=== PATIENT | male | born 1970 | race Caucasian/White ===

== ENCOUNTER 2018-02-28 15:13 | Inpatient (IN) | payer BC ==
[~2018-02-28] VITALS: Ht 182.9 cm; Wt 115.2 kg
[2018-02-28 16:33] LABS: BASOPHILS % (AUTO) 0.3 % (0-1); EOSINOPHILS # (AUTO) 0.1 X10'3 (0-0.9); EOSINOPHILS % (AUTO) 1.1 % (0-6); HEMATOCRIT 40.2 % (42.0-52.0); HEMOGLOBIN 13.9 g/dl (14.0-17.9); LYMPHOCYTES # (AUTO) 0.9 X10'3 (1.1-4.8); LYMPHOCYTES % (AUTO) 7.4 % (21-51); MEAN CORPUSCULAR HEMOGLOBIN 30.8 PG (27.0-31.0); MEAN CORPUSCULAR HGB CONC 34.6 % (33.0-36.5); MEAN PLATELET VOLUME 7.1 FL (7.4-10.4); MONOCYTES # (AUTO) 0.7 X10'3 (0-0.9); MONOCYTES % (AUTO) 5.2 % (2-12); NEUTROPHILS # (AUTO) 10.9 X10'3 (1.8-7.7); PLATELET COUNT 262 X10'3 (140-440); RED BLOOD COUNT 4.51 X10'6 (4.70-6.10); RED CELL DISTRIBUTION WIDTH 12.6 % (11.5-14.5); WHITE BLOOD COUNT 12.7 X10'3 (4.5-11.0)
[2018-02-28 16:35] LABS: CLARITY,URINE Clear (Clear); GLUCOSE, URINE Negative (Neg); KETONES,URINE Negative (Neg); LEUKOCYTE ESTERASE ,URINE Negative (Neg); NITRITES, URINE Negative (Neg); OCCULT BLOOD,URINE Negative (Neg); PROTEIN,URINE Negative (Neg); UROBILINOGEN,URINE 0.2 E.U/dL (0.2-1.0)
[2018-02-28 16:42] LABS: COLOR,URINE STRAW (Yellow); UA COLLECTION TYPE CLN CATCH MIDSTREAM
[2018-02-28 16:48] LABS: ALANINE AMINOTRANSFERASE 38 U/L (12-78); ALBUMIN/GLOBULIN RATIO 1.2 (1.1-1.5); ALKALINE PHOSPHATASE 73 IU/L (46-116); ANION GAP 10 (8-16); ASPARTATE AMINO TRANSFERASE 18 U/L (10-37); BILIRUBIN,TOTAL 0.7 MG/DL (0.1-1.0); BLOOD UREA NITROGEN 14 MG/DL (7-18); BUN/CREATININE RATIO 12.8 (5.4-32.0); CALCIUM 9.6 MG/DL (8.5-10.1); CHLORIDE 101 MMOL/L (99-107); CREATININE 1.09 MG/DL (0.60-1.10); GLUCOSE 114 MG/DL (70-104); POTASSIUM 4.1 MMOL/L (3.5-5.1); SODIUM 139 MMOL/L (135-145); TOTAL CARBON DIOXIDE 28.1 MMOL/L (24-32); TOTAL PROTEIN 7.3 G/DL (6.4-8.2); eGFR 73 ML/MIN
[2018-02-28] MEDS ORDERED: piperacillin/tazo 3.375gm/50ml 50 ML IV ONE (16:55)
[2018-02-28] MEDS ORDERED: oxyCODONE/APAP 10/325mg tablet PO ONE (17:20)
[2018-02-28] MEDS ORDERED: potassium Cl 20 mEq SR tablet PO PRN ×2 (18:30)
[2018-02-28] MEDS ORDERED: magnesium 4gm in 100ml NS 100 ML IV PRN (18:30)
[2018-02-28] MEDS ORDERED: magnesium 2GM in 50ml NS 50 ML IV PRN (18:30)
[2018-02-28] MEDS ORDERED: diphenhydrAMINE 25mg capsule PO PRN (18:30)
[2018-02-28] MEDS ORDERED: mag hydrox/Alum hydrox/simeth 30ml oral suspension PO PRN (18:30)
[2018-02-28] MEDS ORDERED: oxyCODONE/APAP 10/325mg tablet PO PRN (18:30)
[2018-02-28] MEDS ORDERED: magnesium Cl slow-release 64mg tablet PO PRN (18:30)
[2018-02-28] MEDS ORDERED: ondansetron/PF 4mg/2ml inj IV PRN (18:30)
[2018-02-28] MEDS ORDERED: magnesium hydroxide 30ml (MOM) UD suspension PO PRN (18:30)
[2018-02-28] MEDS ORDERED: diphenhydrAMINE 50 mg/ml inj IV PRN (18:30)
[2018-02-28] MEDS ORDERED: acetaminophen 325mg tablet PO PRN ×2 (18:30)
[2018-02-28] MEDS ORDERED: potassium Cl 40MEQ/NS 500ml 500 ML IV PRN ×2 (18:30)
[2018-02-28] MEDS: normal saline 1000ml 1,000 ML IV SCH (18:42)
[2018-02-28] MEDS: ALPRAZolam 0.5mg tablet PO PRN (18:58)
[2018-02-28] MEDS: vancomycin inj 1,250 MG in normal saline 250ml IV soln 250 ML IV SCH (19:11)
[2018-02-28] MEDS: nortriptyline 25mg capsule PO SCH (20:05)
[2018-02-28] MEDS ORDERED: PER10325T PO (20:09)
[2018-02-28] MEDS ORDERED: GABA300C PO (20:09)
[2018-02-28] MEDS ORDERED: NORT25CA5 PO (20:09)
[2018-02-28] MEDS ORDERED: ALPR-624 PO (20:09)
[2018-02-28] MEDS: gabapentin 300mg capsule PO SCH (20:12)
[2018-02-28] MEDS ORDERED: temazepam 15mg capsule PO PRN (21:00)
[2018-02-28 21:30] VITALS: BP 147/80
[2018-02-28] MEDS ORDERED: IBUP-1984 PO (22:34)
[2018-03-01 00:09] VITALS: BP 130/81
[2018-03-01] MEDS: vancomycin inj 1,250 MG in normal saline 250ml IV soln 250 ML IV SCH ×3 (03:00→19:28)
[2018-03-01] MEDS ORDERED: vancomycin/NS 1 GM ADD-VANTAGE 250 ML IV ONE (04:15)
[2018-03-01 06:44] LABS: BASOPHILS # (AUTO) 0.1 X10'3 (0-0.2); BASOPHILS % (AUTO) 1.2 % (0-1); EOSINOPHILS # (AUTO) 0.2 X10'3 (0-0.9); EOSINOPHILS % (AUTO) 1.5 % (0-6); HEMATOCRIT 38.1 % (42.0-52.0); HEMOGLOBIN 13.3 g/dl (14.0-17.9); LYMPHOCYTES # (AUTO) 1.8 X10'3 (1.1-4.8); LYMPHOCYTES % (AUTO) 15.6 % (21-51); MEAN CORPUSCULAR HEMOGLOBIN 31.1 PG (27.0-31.0); MEAN CORPUSCULAR HGB CONC 34.8 % (33.0-36.5); MEAN CORPUSCULAR VOLUME 89.5 FL (78-98); MONOCYTES # (AUTO) 0.8 X10'3 (0-0.9); MONOCYTES % (AUTO) 7.2 % (2-12); NEUTROPHILS # (AUTO) 8.5 X10'3 (1.8-7.7); NEUTROPHILS % (AUTO) 74.5 % (42-75); PLATELET COUNT 243 X10'3 (140-440); RED BLOOD COUNT 4.26 X10'6 (4.70-6.10); RED CELL DISTRIBUTION WIDTH 12.7 % (11.5-14.5); WHITE BLOOD COUNT 11.4 X10'3 (4.5-11.0)
[2018-03-01 07:15] LABS: ALBUMIN 3.5 G/DL (3.4-5.0); ANION GAP 8 (8-16); BLOOD UREA NITROGEN 13 MG/DL (7-18); BUN/CREATININE RATIO 11.9 (5.4-32.0); CHLORIDE 103 MMOL/L (99-107); CREATININE 1.09 MG/DL (0.60-1.10); GLUCOSE 111 MG/DL (70-104); MAGNESIUM 2.1 MG/DL (1.5-2.4); POTASSIUM 3.8 MMOL/L (3.5-5.1); SODIUM 140 MMOL/L (135-145); TOTAL CARBON DIOXIDE 29.3 MMOL/L (24-32); eGFR 73 ML/MIN
[2018-03-01 07:19] VITALS: BP 139/89
[2018-03-01] MEDS: K and/or MAG REPLACEMENT MC SCH (07:36)
[2018-03-01] MEDS: gabapentin 300mg capsule PO SCH ×2 (07:37→19:28)
[2018-03-01] MEDS ORDERED: CefTRIAXone 250MG IM Kit w/LIDOcaine IM ONE (08:15)
[2018-03-01] MEDS ORDERED: azithromycin 250mg tablet PO ONE (08:15)
[2018-03-01] MEDS: normal saline 1000ml 1,000 ML IV SCH (11:31)
[2018-03-01 12:29] VITALS: BP 132/66
[2018-03-01 18:30] VITALS: BP 146/100
[2018-03-01] MEDS ORDERED: VANCOMYCIN LEVEL IV ONE (18:30)
[2018-03-01] MEDS: ALPRAZolam 0.5mg tablet PO PRN (19:03)
[2018-03-01] MEDS: lactobacillus rhamnosus 10,000 MMU CELLS/CAPSULE PO SCH (19:28)
[2018-03-01] MEDS: nortriptyline 25mg capsule PO SCH (20:35)
[2018-03-01 22:55] VITALS: BP 132/85
[2018-03-02] MEDS: vancomycin inj 1,250 MG in normal saline 250ml IV soln 250 ML IV SCH (03:01)
[2018-03-02 05:35] LABS: BASOPHILS % (AUTO) 0.2 % (0-1); EOSINOPHILS # (AUTO) 0.4 X10'3 (0-0.9); EOSINOPHILS % (AUTO) 3.8 % (0-6); HEMATOCRIT 39.5 % (42.0-52.0); HEMOGLOBIN 13.8 g/dl (14.0-17.9); LYMPHOCYTES # (AUTO) 1.6 X10'3 (1.1-4.8); MEAN CORPUSCULAR HEMOGLOBIN 31.2 PG (27.0-31.0); MEAN CORPUSCULAR HGB CONC 34.9 % (33.0-36.5); MEAN CORPUSCULAR VOLUME 89.3 FL (78-98); MEAN PLATELET VOLUME 7.1 FL (7.4-10.4); MONOCYTES # (AUTO) 0.9 X10'3 (0-0.9); MONOCYTES % (AUTO) 8.3 % (2-12); NEUTROPHILS # (AUTO) 7.4 X10'3 (1.8-7.7); NEUTROPHILS % (AUTO) 71.7 % (42-75); PLATELET COUNT 248 X10'3 (140-440); RED BLOOD COUNT 4.43 X10'6 (4.70-6.10); RED CELL DISTRIBUTION WIDTH 12.7 % (11.5-14.5); WHITE BLOOD COUNT 10.3 X10'3 (4.5-11.0)
[2018-03-02 05:59] LABS: ALBUMIN 3.4 G/DL (3.4-5.0); ANION GAP 7 (8-16); BLOOD UREA NITROGEN 14 MG/DL (7-18); BUN/CREATININE RATIO 13.9 (5.4-32.0); CALCIUM 9.5 MG/DL (8.5-10.1); CHLORIDE 104 MMOL/L (99-107); CREATININE 1.01 MG/DL (0.60-1.10); GLUCOSE 112 MG/DL (70-104); MAGNESIUM 2.1 MG/DL (1.5-2.4); POTASSIUM 3.9 MMOL/L (3.5-5.1); SODIUM 141 MMOL/L (135-145); TOTAL CARBON DIOXIDE 29.6 MMOL/L (24-32); eGFR 80 ML/MIN
[2018-03-02 07:06] VITALS: BP 126/92
[2018-03-02] MEDS: K and/or MAG REPLACEMENT MC SCH (08:00)
[2018-03-02] MEDS: lactobacillus rhamnosus 10,000 MMU CELLS/CAPSULE PO SCH (08:14)
[2018-03-02] MEDS: gabapentin 300mg capsule PO SCH (08:14)
[2018-03-02] MEDS ORDERED: SULF1TAB49 PO (08:56)
[2018-03-02] MEDS ORDERED: VANCOMYCIN LEVEL IV ONE (10:30)
== END 2018-03-02 09:20 | disposition home or self-care (01) | DRG 603 ==
LOC: ER 15:13 → ED HOLD 18:26 → EDBEDREQ 20:24 → MED 3N 20:59
PROVIDERS: ADMIT Internal Medicine; ATTEND Internal Medicine
DX: L03.314 Cellulitis of groin (principal); G62.9 Polyneuropathy, unspecified; F41.9 Anxiety disorder, unspecified; N45.1 Epididymitis; L02.215 Cutaneous abscess of perineum; G89.4 Chronic pain syndrome; N50.89 Other specified disorders of the male genital organs; M54.9 Dorsalgia, unspecified; Z79.899 Other long term (current) drug therapy; Z79.01 Long term (current) use of anticoagulants; Z79.82 Long term (current) use of aspirin
CPT/HCPCS: 36415; 76870; 80048; 80053; 80202; 81003; 83605; 83735; 85025; 87040; 87070; 87491; 96365; 99285; J0696; J2543; J3370; J7030

== ENCOUNTER 2019-11-28 10:04 | Inpatient (IN) | payer BC ==
[~2019-11-28] VITALS: Ht 182.9 cm; Wt 120.5 kg
[~2019-11-28 10:04] MED LIST: ALPR-624 PO; GABA300C PO; NORT25CA5 PO; PER10325T PO
[2019-11-28] MEDS ORDERED: normal saline 1000ML IV soln IV ONE (10:35)
[2019-11-28] MEDS ORDERED: LIDOcaine 1% W/epiNEPHrine 1:200,000 10ml vial IJ ONE (10:40)
[2019-11-28] MEDS ORDERED: vancomycin inj 1,000 MG in normal saline 250ml IV soln 250 ML IV ONE (10:50)
[2019-11-28] MEDS ORDERED: VANCOMYCIN 1gm/H2O 200ml PB 200 ML IV ONE (11:05)
[2019-11-28 11:07] LABS: BASOPHILS # (AUTO) 0.1 X10'3 (0-0.2); BASOPHILS % (AUTO) 0.7 % (0-1); EOSINOPHILS # (AUTO) 0.2 X10'3 (0-0.9); EOSINOPHILS % (AUTO) 1.4 % (0-6); HEMATOCRIT 38.9 % (42.0-52.0); HEMOGLOBIN 13.5 g/dl (14.0-17.9); LYMPHOCYTES # (AUTO) 1.4 X10'3 (1.1-4.8); LYMPHOCYTES % (AUTO) 12.3 % (21-51); MEAN CORPUSCULAR HEMOGLOBIN 31.1 PG (27.0-31.0); MEAN CORPUSCULAR HGB CONC 34.7 g/dL (33.0-36.5); MEAN CORPUSCULAR VOLUME 89.8 FL (78-98); MONOCYTES # (AUTO) 0.8 X10'3 (0-0.9); MONOCYTES % (AUTO) 7.3 % (2-12); NEUTROPHILS # (AUTO) 8.9 X10'3 (1.8-7.7); NEUTROPHILS % (AUTO) 78.3 % (42-75); PLATELET COUNT 339 X10'3 (140-440); RED BLOOD COUNT 4.33 X10'6 (4.70-6.10); RED CELL DISTRIBUTION WIDTH 12.9 % (11.5-14.5); WHITE BLOOD COUNT 11.3 X10'3 (4.5-11.0)
[2019-11-28 11:32] LABS: ALANINE AMINOTRANSFERASE 58 U/L (12-78); ALBUMIN 3.8 G/DL (3.4-5.0); ALBUMIN/GLOBULIN RATIO 0.9 (1.1-1.5); ALKALINE PHOSPHATASE 97 IU/L (46-116); ANION GAP 9 (8-16); ASPARTATE AMINO TRANSFERASE 29 U/L (10-37); BILIRUBIN,TOTAL 0.8 MG/DL (0.1-1.0); BLOOD UREA NITROGEN 11 MG/DL (7-18); BUN/CREATININE RATIO 9.4 (5.4-32.0); CALCIUM 9.6 MG/DL (8.5-10.1); CHLORIDE 102 MMOL/L (99-107); CREATININE 1.17 MG/DL (0.60-1.10); GLUCOSE 110 MG/DL (70-104); MAGNESIUM 2.2 MG/DL (1.5-2.4); POTASSIUM 4.2 MMOL/L (3.5-5.1); SODIUM 140 MMOL/L (135-145); TOTAL CARBON DIOXIDE 29.5 MMOL/L (24-32); eGFR 67 ML/MIN
[2019-11-28] MEDS ORDERED: acetaminophen 325mg tablet PO PRN (12:50)
[2019-11-28] MEDS ORDERED: morphine 2 MG/ML inj. syringe IV PRN (12:50)
[2019-11-28] MEDS ORDERED: magnesium hydroxide 30ml (MOM) UD suspension PO PRN (12:50)
[2019-11-28] MEDS ORDERED: mag hydrox/Alum hydrox/simeth 30ml oral suspension PO PRN (12:50)
[2019-11-28] MEDS: HYDROcodone/acetaminophen 5mg/325mg tablet PO PRN ×2 (13:18→19:40)
[2019-11-28 13:53] VITALS: BP 196/120
[2019-11-28] MEDS: normal saline 1000ml 1,000 ML IV SCH ×2 (14:19→22:49)
--- NOTE | 2019-11-28 16:10 | NUR ---
PAGER ID: [phone] MESSAGE: [id number] Marques Schuler: Patient is complaining of 10/10 finger pain. Patient was given morphine 1 mg an hour and a half ago. Patient is wanting something stronger. JENNA Bhagat Ext [phone]
[2019-11-28 16:14] VITALS: BP 172/88
--- NOTE | 2019-11-28 16:16 | NUR ---
PAGER ID: [phone] MESSAGE: FYI: RM [id number] Marques Schuler BP 172/88 JENNA Bhagat ext [phone]
[2019-11-28] MEDS: HYDROmorphone inj. 0.5 MG/0.5 ML DISP.SYRIN IV PRN ×2 (16:20→20:58)
--- NOTE | 2019-11-28 16:28 | NUR ---
PAGER ID: [phone] MESSAGE: [id number] Marques Schuler: was hoping he could get his 300mg daily Gabapentin and his prn Xanax 0.5mg. He usually take his Gabapentin at 1600. JENNA Bhagat Ext [phone]
[2019-11-28 18:00] VITALS: BP 169/84
--- NOTE | 2019-11-28 18:15 | NUR ---
Problems reprioritized. Patient report given, questions answered & plan of care reviewed with JENNA Brody.
[2019-11-28] MEDS ORDERED: ALPRAZolam 0.25mg tablet PO SCH (21:26)
[2019-11-28] MEDS: gabapentin 300mg capsule PO SCH (21:36)
[2019-11-28] MEDS: heparin, porcine 5000 units/ml vial SQ SCH (21:38)
[2019-11-28 22:00] VITALS: BP 155/90
[2019-11-29] MEDS: HYDROmorphone inj. 0.5 MG/0.5 ML DISP.SYRIN IV PRN ×3 (00:58→09:35)
[2019-11-29] MEDS: normal saline 1000ml 1,000 ML IV SCH ×2 (01:05→11:33)
[2019-11-29] MEDS: HYDROcodone/acetaminophen 5mg/325mg tablet PO PRN (04:25)
[2019-11-29 06:00] VITALS: BP 152/92
[2019-11-29 06:19] LABS: BASOPHILS % (AUTO) 0.4 % (0-1); EOSINOPHILS # (AUTO) 0.1 X10'3 (0-0.9); EOSINOPHILS % (AUTO) 1.2 % (0-6); HEMATOCRIT 33.9 % (42.0-52.0); HEMOGLOBIN 12.1 g/dl (14.0-17.9); LYMPHOCYTES # (AUTO) 1.9 X10'3 (1.1-4.8); LYMPHOCYTES % (AUTO) 17.1 % (21-51); MEAN CORPUSCULAR HEMOGLOBIN 31.7 PG (27.0-31.0); MEAN CORPUSCULAR HGB CONC 35.7 g/dL (33.0-36.5); MEAN CORPUSCULAR VOLUME 88.8 FL (78-98); MEAN PLATELET VOLUME 6.8 FL (7.4-10.4); MONOCYTES % (AUTO) 8.7 % (2-12); NEUTROPHILS # (AUTO) 8.2 X10'3 (1.8-7.7); NEUTROPHILS % (AUTO) 72.6 % (42-75); PLATELET COUNT 339 X10'3 (140-440); RED BLOOD COUNT 3.82 X10'6 (4.70-6.10); RED CELL DISTRIBUTION WIDTH 12.5 % (11.5-14.5); WHITE BLOOD COUNT 11.2 X10'3 (4.5-11.0)
[2019-11-29 06:22] LABS: ALBUMIN 3.3 G/DL (3.4-5.0); ANION GAP 8 (8-16); BLOOD UREA NITROGEN 10 MG/DL (7-18); BUN/CREATININE RATIO 8.9 (5.4-32.0); CHLORIDE 102 MMOL/L (99-107); CREATININE 1.12 MG/DL (0.60-1.10); GLUCOSE 112 MG/DL (70-104); SODIUM 137 MMOL/L (135-145); TOTAL CARBON DIOXIDE 26.9 MMOL/L (24-32); eGFR 70 ML/MIN
--- NOTE | 2019-11-29 06:30 | NUR ---
Patient in room ORTH[facility] 4015. I have received report from JENNA Shea and had the opportunity to ask questions and assume patient care.
[2019-11-29] MEDS: gabapentin 300mg capsule PO SCH ×2 (09:01→19:34)
[2019-11-29] MEDS: heparin, porcine 5000 units/ml vial SQ SCH ×2 (09:02→19:34)
[2019-11-29] MEDS ORDERED: HYDROcodone/acetaminophen 10/325mg tab PO PRN (09:20)
[2019-11-29 10:00] VITALS: BP 185/107
[2019-11-29] MEDS ORDERED: DULO60CA65 PO (10:00)
[2019-11-29] MEDS: piperacillin/tazo 4.5gm/100ml 100 ML IV SCH ×3 (11:33→23:38)
[2019-11-29] MEDS: hydrALAZINE 20mg/ml inj. IV PRN ×2 (12:32→19:34)
[2019-11-29] MEDS: oxyCODONE/APAP 10/325mg tablet PO PRN ×3 (14:12→23:40)
[2019-11-29] MEDS: duloxetine 30mg CAPSULE.DR PO SCH ×2 (14:17→19:34)
[2019-11-29] MEDS: nortriptyline 25mg capsule PO SCH (14:22)
--- NOTE | 2019-11-29 18:00 | NUR ---
Patient in room [facility]TH[facility] 4015. I have received report from Manolo Burk RN and had the opportunity to ask questions and assume patient care. Addendum: 11/29/19 at 2131 by Shiela Lara RN Amended: Links added.
--- NOTE | 2019-11-29 18:00 | NUR ---
Patient in room [facility]TH[facility] 4015. I have received report from Manolo Burk RN and had the opportunity to ask questions and assume patient care. Addendum: 11/30/19 at 0414 by Shiela Lara RN Amended: Links added.
--- NOTE | 2019-11-29 18:51 | NUR ---
Problems reprioritized. Patient report given, questions answered & plan of care reviewed with JENNA Kuo.
[2019-11-29] MEDS ORDERED: VANCOMYCIN LEVEL IV ONE (19:30)
[2019-11-29] MEDS: ALPRAZolam 0.25mg tablet PO SCH (21:27)
[2019-11-29] MEDS ORDERED: amLODIPine 5mg tablet PO ONE (22:10)
[2019-11-30] MEDS: ondansetron/PF 4mg/2ml inj IV PRN (00:03)
--- NOTE | 2019-11-30 00:30 | NUR ---
pt's nausea subsided and pt took second Percocet at this time. pt resting in bed. no s/s of distress noted. Addendum: 11/30/19 at 0518 by Shiela Lara RN Amended: Links added.
[2019-11-30 01:55] VITALS: BP 157/93
[2019-11-30] MEDS: normal saline 1000ml 1,000 ML IV SCH ×3 (04:28→23:44)
[2019-11-30 06:00] VITALS: BP 141/88
[2019-11-30 06:04] LABS: BASOPHILS % (AUTO) 0.4 % (0-1); EOSINOPHILS # (AUTO) 0.1 X10'3 (0-0.9); EOSINOPHILS % (AUTO) 0.7 % (0-6); HEMATOCRIT 35.9 % (42.0-52.0); HEMOGLOBIN 12.8 g/dl (14.0-17.9); LYMPHOCYTES # (AUTO) 1.2 X10'3 (1.1-4.8); LYMPHOCYTES % (AUTO) 10.6 % (21-51); MEAN CORPUSCULAR HEMOGLOBIN 31.9 PG (27.0-31.0); MEAN CORPUSCULAR HGB CONC 35.7 g/dL (33.0-36.5); MEAN CORPUSCULAR VOLUME 89.2 FL (78-98); MEAN PLATELET VOLUME 6.7 FL (7.4-10.4); MONOCYTES # (AUTO) 0.8 X10'3 (0-0.9); MONOCYTES % (AUTO) 7.3 % (2-12); NEUTROPHILS # (AUTO) 9.4 X10'3 (1.8-7.7); PLATELET COUNT 392 X10'3 (140-440); RED BLOOD COUNT 4.03 X10'6 (4.70-6.10); RED CELL DISTRIBUTION WIDTH 12.4 % (11.5-14.5); WHITE BLOOD COUNT 11.6 X10'3 (4.5-11.0)
[2019-11-30 06:08] LABS: ALBUMIN 3.4 G/DL (3.4-5.0); ANION GAP 9 (8-16); BLOOD UREA NITROGEN 14 MG/DL (7-18); BUN/CREATININE RATIO 12.5 (5.4-32.0); CALCIUM 9.7 MG/DL (8.5-10.1); CHLORIDE 103 MMOL/L (99-107); CREATININE 1.12 MG/DL (0.60-1.10); GLUCOSE 121 MG/DL (70-104); POTASSIUM 4.2 MMOL/L (3.5-5.1); SODIUM 141 MMOL/L (135-145); TOTAL CARBON DIOXIDE 29.4 MMOL/L (24-32); eGFR 70 ML/MIN
[2019-11-30] MEDS: piperacillin/tazo 4.5gm/100ml 100 ML IV SCH (08:43)
[2019-11-30] MEDS: gabapentin 300mg capsule PO SCH ×2 (08:44→20:17)
[2019-11-30] MEDS: duloxetine 30mg CAPSULE.DR PO SCH ×2 (08:44→20:17)
[2019-11-30] MEDS: nortriptyline 25mg capsule PO SCH (08:44)
[2019-11-30] MEDS: heparin, porcine 5000 units/ml vial SQ SCH ×2 (08:46→20:18)
[2019-11-30] MEDS: oxyCODONE/APAP 10/325mg tablet PO PRN ×4 (08:48→22:55)
[2019-11-30 10:00] VITALS: BP 140/99
[2019-11-30] MEDS: ceFAZolin/D5W- 1GM premix 50 ML IV SCH ×2 (16:13→23:42)
[2019-11-30] MEDS: ALPRAZolam 0.25mg tablet PO SCH (16:13)
[2019-11-30 18:00] VITALS: BP 143/88
[2019-11-30] MEDS: lactobacillus rhamnosus 10,000 MMU CELLS/CAPSULE PO SCH (20:17)
[2019-11-30 22:00] VITALS: BP 139/92
[2019-12-01] VITALS (16 sets, daily range): BP systolic 104–153; BP diastolic 67–101
[2019-12-01 05:39] LABS: ALBUMIN 3.2 G/DL (3.4-5.0); ANION GAP 8 (8-16); BLOOD UREA NITROGEN 14 MG/DL (7-18); BUN/CREATININE RATIO 12.4 (5.4-32.0); CALCIUM 9.4 MG/DL (8.5-10.1); CHLORIDE 102 MMOL/L (99-107); CREATININE 1.13 MG/DL (0.60-1.10); GLUCOSE 100 MG/DL (70-104); SODIUM 139 MMOL/L (135-145); TOTAL CARBON DIOXIDE 29.3 MMOL/L (24-32); eGFR 70 ML/MIN
[2019-12-01 05:41] LABS: BASOPHILS # (AUTO) 0.1 X10'3 (0-0.2); BASOPHILS % (AUTO) 0.8 % (0-1); EOSINOPHILS # (AUTO) 0.3 X10'3 (0-0.9); EOSINOPHILS % (AUTO) 3.4 % (0-6); HEMATOCRIT 36.3 % (42.0-52.0); HEMOGLOBIN 12.8 g/dl (14.0-17.9); LYMPHOCYTES % (AUTO) 22.3 % (21-51); MEAN CORPUSCULAR HEMOGLOBIN 31.9 PG (27.0-31.0); MEAN CORPUSCULAR HGB CONC 35.3 g/dL (33.0-36.5); MEAN CORPUSCULAR VOLUME 90.2 FL (78-98); MEAN PLATELET VOLUME 6.5 FL (7.4-10.4); MONOCYTES # (AUTO) 0.9 X10'3 (0-0.9); NEUTROPHILS # (AUTO) 5.7 X10'3 (1.8-7.7); NEUTROPHILS % (AUTO) 63.5 % (42-75); PLATELET COUNT 373 X10'3 (140-440); RED BLOOD COUNT 4.02 X10'6 (4.70-6.10); RED CELL DISTRIBUTION WIDTH 12.2 % (11.5-14.5); WHITE BLOOD COUNT 8.9 X10'3 (4.5-11.0)
[2019-12-01] MEDS: oxyCODONE/APAP 10/325mg tablet PO PRN ×3 (05:44→23:25)
--- NOTE | 2019-12-01 05:52 | NUR ---
SURGICAL PREP DONE THIS AM.
--- NOTE | 2019-12-01 06:22 | NUR ---
REPORT GIVEN TO JENNA HAYES.
--- NOTE | 2019-12-01 06:30 | NUR ---
Patient in room [facility]TH[facility] 4015. I have received report from Donna WEST and had the opportunity to ask questions and assume patient care.
[2019-12-01] MEDS: nortriptyline 25mg capsule PO SCH (07:35)
[2019-12-01] MEDS: duloxetine 30mg CAPSULE.DR PO SCH ×2 (07:35→19:21)
[2019-12-01] MEDS: ceFAZolin/D5W- 1GM premix 50 ML IV SCH ×3 (07:35→23:25)
[2019-12-01] MEDS: gabapentin 300mg capsule PO SCH ×2 (07:35→19:11)
[2019-12-01] MEDS: lactobacillus rhamnosus 10,000 MMU CELLS/CAPSULE PO SCH ×2 (07:35→19:11)
[2019-12-01] MEDS: heparin, porcine 5000 units/ml vial SQ SCH ×2 (08:00→19:11)
[2019-12-01] MEDS: normal saline 1000ml 1,000 ML IV SCH ×2 (10:32→15:41)
[2019-12-01] MEDS: hydrALAZINE 20mg/ml inj. IV PRN (11:12)
[2019-12-01] MEDS: ondansetron/PF 4mg/2ml inj IV PRN (12:09)
[2019-12-01] MEDS ORDERED: ringers solution, lacted 1,000 ML IV SCH (12:54)
[2019-12-01] MEDS ORDERED: proMETHazine 25mg rectal suppository RC PRN (12:55)
[2019-12-01] MEDS ORDERED: fentaNYL/PF 50MCG/1 ML 2ML syringe IV PRN ×2 (12:55)
[2019-12-01] MEDS ORDERED: labetalol 20mg/4ml (5mg/ml) syringe IV PRN (12:55)
[2019-12-01] MEDS ORDERED: ondansetron/PF 4mg/2ml inj IV PRN (12:55)
[2019-12-01] MEDS ORDERED: hydrALAZINE 20mg/ml inj. IV PRN (12:55)
[2019-12-01] MEDS ORDERED: morphine 4 MG/ML inj SYRINge IV PRN ×2 (12:55)
--- NOTE | 2019-12-01 12:56 | NUR ---
Patient report given to ritika in recovery
[2019-12-01] MEDS ORDERED: MIDAZolam 1mg/ml 10ml vial ONE (13:30)
[2019-12-01] MEDS ORDERED: fentaNYL/PF 50MCG/1 ML 2ML syringe ONE (13:30)
[2019-12-01] MEDS ORDERED: ROPIVAcaine 0.5% (5mg/ml) 30ml vial ONE (13:31)
[2019-12-01] MEDS ORDERED: propofol inj 20 ML IV ONE (13:41)
[2019-12-01] MEDS ORDERED: LIDOcaine 2% (20mg/ml) 5ml vial ONE (13:41)
[2019-12-01] MEDS ORDERED: ceFAZolin 1000mg inj ONE (13:46)
[2019-12-01] MEDS ORDERED: labetalol 20mg/4ml (5mg/ml) syringe IV ONE ×2 (13:55→14:04)
--- NOTE | 2019-12-01 14:16 | NUR ---
Received from OR via BED, accompanied by Anesthesiologist DR MARTÍNEZ and report given by Anesthesiologist. PT DROWSY, DENIES PAIN, LEFT HAND/WRIST COVERED W/GAUZE DRSG CDI, THUMB IS W/O DRSG AND IS PWD, LOG TURNER 1-2 SECONDS. Addendum: 12/01/19 at 1437 by Caty Edwards RN Amended: Links added.
--- NOTE | 2019-12-01 14:48 | NUR ---
Patient in room [facility]THO 4015. I have received report from Caty WEST and had the opportunity to ask questions and assume patient care.
--- NOTE | 2019-12-01 15:06 | NUR ---
Report called to receiving nurse. Transferred via BED, NO Belongings, PT TRANSFERRED BY [facility] TO ROOM 4015, RECEIVING RN NOTIFIED OF PTS ARRIVAL. Special Issues communicated to receiving nurse. YES. Addendum: 12/01/19 at 1518 by Caty Edwards RN Amended: Links added.
[2019-12-01] MEDS: ALPRAZolam 0.25mg tablet PO SCH (17:30)
--- NOTE | 2019-12-01 18:15 | NUR ---
Problems reprioritized. Patient report given, questions answered & plan of care reviewed with Martina WEST.
--- NOTE | 2019-12-01 18:27 | NUR ---
RECEIVED REPORT FROM FREDDY WEST AND ASSUMED PATIENT CARE
--- NOTE | 2019-12-01 19:20 | NUR ---
PATIENT STATES HE DOES NOT TAKE CYMBALTA A HOME MED. WILL CLARIFY WITH MD IN AM.
[2019-12-02 02:00] VITALS: BP 133/83
--- NOTE | 2019-12-02 05:59 | NUR ---
REPORT GIVEN TO FREDDY WEST
[2019-12-02 06:03] LABS: BASOPHILS # (AUTO) 0.1 X10'3 (0-0.2); BASOPHILS % (AUTO) 0.5 % (0-1); EOSINOPHILS # (AUTO) 0.2 X10'3 (0-0.9); EOSINOPHILS % (AUTO) 2.4 % (0-6); HEMOGLOBIN 13.6 g/dl (14.0-17.9); LYMPHOCYTES # (AUTO) 2.5 X10'3 (1.1-4.8); LYMPHOCYTES % (AUTO) 25.6 % (21-51); MEAN CORPUSCULAR HEMOGLOBIN 31.3 PG (27.0-31.0); MEAN CORPUSCULAR HGB CONC 34.8 g/dL (33.0-36.5); MEAN CORPUSCULAR VOLUME 89.7 FL (78-98); MEAN PLATELET VOLUME 6.6 FL (7.4-10.4); MONOCYTES # (AUTO) 0.8 X10'3 (0-0.9); NEUTROPHILS # (AUTO) 6.2 X10'3 (1.8-7.7); NEUTROPHILS % (AUTO) 63.5 % (42-75); PLATELET COUNT 448 X10'3 (140-440); RED BLOOD COUNT 4.35 X10'6 (4.70-6.10); RED CELL DISTRIBUTION WIDTH 12.7 % (11.5-14.5); WHITE BLOOD COUNT 9.8 X10'3 (4.5-11.0)
--- NOTE | 2019-12-02 06:07 | NUR ---
Patient in room ORTHO 4015. I have received report from Martina WEST and had the opportunity to ask questions and assume patient care.
[2019-12-02 06:10] VITALS: BP 148/98
[2019-12-02 06:15] LABS: ALBUMIN 3.5 G/DL (3.4-5.0); ANION GAP 10 (8-16); BLOOD UREA NITROGEN 12 MG/DL (7-18); BUN/CREATININE RATIO 11.3 (5.4-32.0); CHLORIDE 103 MMOL/L (99-107); CREATININE 1.06 MG/DL (0.60-1.10); GLUCOSE 105 MG/DL (70-104); SODIUM 141 MMOL/L (135-145); TOTAL CARBON DIOXIDE 28.2 MMOL/L (24-32); eGFR 75 ML/MIN
[2019-12-02] MEDS: nortriptyline 25mg capsule PO SCH (07:49)
[2019-12-02] MEDS: lactobacillus rhamnosus 10,000 MMU CELLS/CAPSULE PO SCH ×2 (07:54→19:48)
[2019-12-02] MEDS: duloxetine 30mg CAPSULE.DR PO SCH ×2 (07:54→19:48)
[2019-12-02] MEDS: ceFAZolin/D5W- 1GM premix 50 ML IV SCH ×3 (07:56→23:36)
[2019-12-02] MEDS: heparin, porcine 5000 units/ml vial SQ SCH ×2 (08:00→19:48)
[2019-12-02] MEDS: gabapentin 300mg capsule PO SCH ×2 (08:00→19:48)
[2019-12-02 10:00] VITALS: BP 138/93
--- NOTE | 2019-12-02 13:57 | NUR ---
Initial: Pt admit w/ L hand cellulitis s/p I&D to L finger. PO fluctuates but mostly 75-100% avg regular diet meeting needs. [facility] 11/30. Will continue to monitor. Rec: 1. continue regular diet 2. monitor for ONS needs 3. bowel care as needed 4. wt per rx Addendum: 12/02/19 at [address] Amended: Links added.
[2019-12-02] MEDS: ALPRAZolam 0.25mg tablet PO SCH (16:52)
[2019-12-02 18:00] VITALS: BP 138/86
--- NOTE | 2019-12-02 18:25 | NUR ---
Problems reprioritized. Patient report given, questions answered & plan of care reviewed with Janey WEST.
[2019-12-02 22:00] VITALS: BP 142/86
[2019-12-03 06:00] VITALS: BP 145/98
--- NOTE | 2019-12-03 06:13 | NUR ---
Problems reprioritized. Patient report given, questions answered & plan of care reviewed with JENNA Lindsay.
--- NOTE | 2019-12-03 06:44 | NUR ---
Patient in room ORTHO 4015. I have received report from Janey WEST and had the opportunity to ask questions and assume patient care.
[2019-12-03 07:24] LABS: BASOPHILS # (AUTO) 0.1 X10'3 (0-0.2); BASOPHILS % (AUTO) 1.1 % (0-1); EOSINOPHILS # (AUTO) 0.3 X10'3 (0-0.9); EOSINOPHILS % (AUTO) 3.3 % (0-6); HEMATOCRIT 38.9 % (42.0-52.0); HEMOGLOBIN 13.7 g/dl (14.0-17.9); LYMPHOCYTES # (AUTO) 1.9 X10'3 (1.1-4.8); LYMPHOCYTES % (AUTO) 20.7 % (21-51); MEAN CORPUSCULAR HEMOGLOBIN 31.6 PG (27.0-31.0); MEAN CORPUSCULAR HGB CONC 35.3 g/dL (33.0-36.5); MEAN CORPUSCULAR VOLUME 89.6 FL (78-98); MEAN PLATELET VOLUME 6.6 FL (7.4-10.4); MONOCYTES # (AUTO) 0.6 X10'3 (0-0.9); MONOCYTES % (AUTO) 6.1 % (2-12); NEUTROPHILS # (AUTO) 6.4 X10'3 (1.8-7.7); NEUTROPHILS % (AUTO) 68.8 % (42-75); PLATELET COUNT 481 X10'3 (140-440); RED BLOOD COUNT 4.34 X10'6 (4.70-6.10); RED CELL DISTRIBUTION WIDTH 12.5 % (11.5-14.5); WHITE BLOOD COUNT 9.3 X10'3 (4.5-11.0)
[2019-12-03 07:40] LABS: ALBUMIN 3.7 G/DL (3.4-5.0); ANION GAP 11 (8-16); BLOOD UREA NITROGEN 14 MG/DL (7-18); BUN/CREATININE RATIO 15.1 (5.4-32.0); CALCIUM 10.2 MG/DL (8.5-10.1); CHLORIDE 102 MMOL/L (99-107); CREATININE 0.93 MG/DL (0.60-1.10); GLUCOSE 109 MG/DL (70-104); POTASSIUM 4.2 MMOL/L (3.5-5.1); SODIUM 140 MMOL/L (135-145); TOTAL CARBON DIOXIDE 27.4 MMOL/L (24-32); eGFR 87 ML/MIN
[2019-12-03] MEDS: gabapentin 300mg capsule PO SCH (07:41)
[2019-12-03] MEDS: ceFAZolin/D5W- 1GM premix 50 ML IV SCH (07:41)
[2019-12-03] MEDS: nortriptyline 25mg capsule PO SCH (07:42)
[2019-12-03] MEDS: lactobacillus rhamnosus 10,000 MMU CELLS/CAPSULE PO SCH (07:42)
[2019-12-03] MEDS: duloxetine 30mg CAPSULE.DR PO SCH (07:42)
[2019-12-03] MEDS: heparin, porcine 5000 units/ml vial SQ SCH (07:43)
[2019-12-03 10:00] VITALS: BP 150/107
--- NOTE | 2019-12-03 14:20 | NUR ---
Neftali [id number] Re: Marques silver Dr. saw patient and okay to DC home. Will need DC orders.
[2019-12-03] MEDS ORDERED: OXYC-511 PO (14:25)
[2019-12-03] MEDS ORDERED: AMOX-422 PO (14:25)
--- NOTE | 2019-12-03 14:46 | NUR ---
Safe discharge home with spouse. All personal items with patient. Left on his two feet and in his personal vehicle.
[2019-12-03] MEDS ORDERED: neomy sulf/bacitrac zn/polymixin b oint 14.2 gm tube TP SCH (21:00)
== END 2019-12-03 14:44 | disposition home or self-care (01) | DRG 580 ==
LOC: ER 10:04 → ED HOLD 12:49 → ORTHO 4S 13:29
PROVIDERS: ADMIT Family Medicine; ATTEND Internal Medicine
PROC: 0H9GXZZ Drainage of Left Hand Skin, External Approach (ICD-10-PCS; 2019-11-28)
PROC: 3E0T3BZ Introduction of Anesthetic Agent into Peripheral Nerves and Plexi, Percutaneous Approach (ICD-10-PCS; 2019-11-28)
PROC: 0JBK0ZZ Excision of Left Hand Subcutaneous Tissue and Fascia, Open Approach (ICD-10-PCS; principal; 2019-12-01 13:30)
DX: L03.012 Cellulitis of left finger (principal); L02.512 Cutaneous abscess of left hand; I10 Essential (primary) hypertension; E66.9 Obesity, unspecified; B95.61 Methicillin susceptible Staphylococcus aureus infection as the cause of diseases classified elsewhere; G89.4 Chronic pain syndrome; F41.9 Anxiety disorder, unspecified; M54.9 Dorsalgia, unspecified; Z79.899 Other long term (current) drug therapy; Z68.36 Body mass index [BMI] 36.0-36.9, adult
CPT/HCPCS: 26010; 99285; Z7506; 36415; 73140; 80048; 80053; 80202; 82948; 83605; 83735; 84145; 85025; 87040; 87070; 87077; 87081; 87186; 93005; A6222; A6446; A6449; A7000; G0378; J0360; J0690; J1170; J1644; J2001; J2250; J2270; J2405; J2543; J2704; J2795; J3010; J3370; J3490; J7030

== ENCOUNTER 2025-05-20 00:11 | Inpatient (IN) | payer BC ==
[~2025-05-20] VITALS: Ht 182.9 cm; Wt 101.9 kg
[2025-05-20] VITALS (22 sets, daily range): BP systolic 134–174; BP diastolic 77–104; PULSE 72–114; RESP 13–19; TEMP 97.7–98.2; O2SAT 92–100
[~2025-05-20 00:11] MED LIST changes: +DULO60CA65 PO; +OXYC1TAB17 PO
[2025-05-20 00:37] LABS: MEAN PLATELET VOLUME 6.7 FL (7.4-10.4); RED CELL DISTRIBUTION WIDTH 12.7 % (11.5-14.5)
[2025-05-20 00:52] LABS: CREATININE 1.52 MG/DL (0.60-1.10); TOTAL CARBON DIOXIDE 27.8 MMOL/L (24-32); eCRCL 62 ML/MIN; eGFR 48 ML/MIN
--- NOTE | 2025-05-20 01:51 | Physician Documentation ---
History of Present Illness ~ Chief Complaint: Abdominal Pain Stated Complaint: ABDOMINAL PAIN Time Seen by MD: 01:38 Primary Medical Doctor: CON Source: patient Mode of Arrival: Ambulatory Exam Limitations: no limitations HPI Chief Complaint: Abdominal pain Caveat: None Independent Historians: None History of Present Illness: Patient is a 54-year-old man who denies any past medical problems. Patient comes in complaining of right upper quadrant abdominal pain that began 6-8 hours ago. Patient's pain has been as severe as an eight out of 10. Currently is 5/10. Patient has had associated nausea but without vomiting. No diarrhea. No fever. Patient's pain is described as sharp and nonradiating. No alleviating or exacerbating factors. Patient has never had this pain before. Review of systems: All systems were reviewed and are negative except for what is indicated in the history of present illness. Past Medical History: None Past Surgical History: None Social History: Denies tobacco use, denies alcohol or drug use Medications: Reviewed as documented Nursing Notes Allergies: Reviewed as documented in Nursing Notes Medication Reconciliation Allergies: Coded Allergies: No Known Allergies (Unverified , 05/20/25) Scheduled Duloxetine HCl (Duloxetine HCl), 1 CAP PO BID, (Reported) Gabapentin (Neurontin), 300 MG PO BID, (Reported) Nortriptyline Hcl (Pamelor), 50 MG PO DAILY, (Reported) Oxycodone Hcl/Acetaminophen 10/325 MG* (Percocet 10/325 MG*), 1 TABLET PO TID, (Reported) Discontinued Medications Alprazolam* (Xanax*), 1 TAB PO QDAY hs, (Reported) Discontinued Reason: Other Oxycodone Hcl/Acetaminophen (Oxycodone-Acetaminophen 10-325), 1 TAB PO Q6H PRN for moderate or severe pain Discontinued Reason: Other Past Medical History Past Medical History: No Pertinent History Past Surgical History: noncontributory Alcohol Use: Rarely Drug Use: none Lives In: Home Review of Systems All Other Systems at this time: Reviewed and Negative ROS Patient denies any other acute symptoms other than above. All other systems are negative Physical Exam Vital Signs: RN Vital Signs have been reviewed: Yes, Temperature: 96.8, Source: Temporal, Heart Rate: 90, Respiratory Rate: 16, BP: 170/91, Pulse Oximetry: 96, Weight: 101.900 Oxygen Flow Rate: 0 Pulse Oximetry Reflects: adequate oxygenation Physical Exam General Appearance: No distress HEENT: Normal OP, moist oral mucosa, PERRL, EOMI Neck: supple, normal ROM, trachea midline Pulmonary: No respiratory distress, CTA, BS equal Cardiac: RRR, no murmur, rub or gallop, GI: nondistended, soft, RIGHT UPPER QUADRANT TENDERNESS, normal bowel sounds, no guarding, no rebound Extremities: normal ROM, no swelling, non-tender Skin: intact, dry, warm, no rashes Neuro: AAOx3, speech is clear, no focal motor weakness Psych: normal affect, good eye contact, no apparent hallucination, normal speech Progress Results/Orders Results/Orders Orders - KYLAH YOUSSEF MD Ultrasound Of Abdomen (05/20/25 01:47) Page Hospitalist (05/20/25 03:32) Fill Out Med Reconciliation (05/20/25 03:32) Chest,Single View (05/20/25 03:41) Completed Orders - KYLAH YOUSSEF MD Urinalysis, Cult If Indicated (05/20/25 00:18) Cbc/Diff (05/20/25 00:18) BMP (05/20/25 00:18) Lipase (05/20/25 00:18) CMP (05/20/25 00:18) Ondansetron Inj. (Zofran 4mg/2ml Vial) (05/20/25 01:50) Morphine 4mg/Ml Inj. (Morphine Inj.) (05/20/25 01:50) Ultrasound Of Abdomen (05/20/25 01:47) Electrocardiogram (05/20/25 03:32) Chest,Single View (05/20/25 03:41) Vital Signs 05/20/25 05/20/25 05/20/25 05/20/25 00:15 00:59 01:17 01:53 Temp 96.8 Pulse 83 90 Resp 15 16 16 16 B/P (MAP) 184/100 170/91 (117) Pulse Ox 98 96 O2 Flow Rate 0 05/20/25 05/20/25 05/20/25 05/20/25 02:36 04:00 05:06 05:40 Temp 96.8 Pulse 82 81 79 80 Resp 18 16 18 16 B/P (MAP) 152/96 (114) 142/85 (104) 136/89 (105) Pulse Ox 98 96 96 98 O2 Flow Rate 0 0 0 Laboratory Tests Test 05/20/25 00:23 05/20/25 04:13 05/20/25 05:46 05/20/25 05:48 White Blood Count 7.6 Red Blood Count 4.34 L Hemoglobin 13.5 L Hematocrit 38.0 L Mean Corpuscular Volume 87.6 Mean Corpuscular Hemoglobin 31.2 H Mean Corpuscular Hemoglobin Concent 35.6 Red Cell Distribution Width 12.7 Platelet Count 285 Mean Platelet Volume 6.7 L Neutrophils (%) (Auto) 60.1 Lymphocytes (%) (Auto) 27.8 Monocytes (%) (Auto) 7.3 Eosinophils (%) (Auto) 4.0 Basophils (%) (Auto) 0.8 Neutrophils # (Auto) 4.6 Lymphocytes # (Auto) 2.1 Monocytes # (Auto) 0.6 Eosinophils # (Auto) 0.3 Basophils # (Auto) 0.1 CBC Comment Sodium Level 138 Potassium Level 4.5 4.3 Chloride Level 103 Carbon Dioxide Level 27.8 Anion Gap 7 L Blood Urea Nitrogen 17 Creatinine 1.52 H Estimated GFR/1.73 m2 48 BUN/Creatinine Ratio 11.2 Glucose Level 133 H Calcium Level 9.1 Total Bilirubin 0.4 Aspartate Amino Transf (AST/SGOT) 16 Alanine Aminotransferase (ALT/SGPT) 31 Alkaline Phosphatase 73 Total Protein 7.5 Albumin 4.2 Globulin 3.3 Albumin/Globulin Ratio 1.3 Lipase 21 Chemistry Comments Urine Specimen Description Cln catch midstream Urine Color Yellow Urine Clarity Clear Urine pH 5.5 Urine Specific Mor[place] 1.015 Urine Protein Negative Urine Glucose (UA) Negative Urine Ketones Negative Urine Occult Blood Negative Urine Nitrite Negative Urine Bilirubin Negative Urine Urobilinogen 0.2 Urine Leukocyte Esterase Negative Urine Culture Indicated Not ind Volume Urine Centrifuged 10 ml Urine Comment Hemoglobin A1c 5.3 Troponin I High Sensitivity 7 Glucometer 103 Medical Decision Making Findings Differential diagnosis includes but is not limited to: Cholelithiasis, biliary colic, choledocholithiasis, acute cholecystitis, pancreatitis, gastritis, hepatitis Independent interpretation of EKG: Performed at 3:48 a.m.. Normal sinus rhythm, heart rate 79, normal axis, normal ST segments Chest x-ray, single view, indication: Abdominal pain, preop Independent interpretation: Lungs are clear, normal mediastinum, normal cardiac silhouette, no acute cardiopulmonary process. Abdominal ultrasound, indication: Abdominal pain Impression: 1. Cholelithiasis including nonmobile stone within the neck of the gallbladder. 2. Hepatic steatosis. Laboratory data independent interpretation: CBC: Unremarkable, mild anemia with a hemoglobin of 13.5 CMP: LFTs are normal, lipase is normal at 25, creatinine is mildly elevated at 1.52 Emergency department course/medical decision-making: Patient presents with right upper quadrant and epigastric pain that began 3-4 days ago. Patient's ultrasound shows a non mobile gallstone in the neck of the gallbladder. The patient has a normal CBD of 7 mm with no evidence of cholecystitis. Patient's LFTs are normal. Patient does not require ERCP. Case discussed with the surgeon and hospitalist for admission. Recommend cholecystectomy. Patient is afebrile and hemodynamically stable. Test results and all the above discussed with the patient. He is in agreement of the plan. Patient to remain NPO. Consultation/communications: 5:35 a.m.: Case discussed with our surgeon Dr. Bennett. He will see the patient in anticipation for cholecystectomy. 5:39 a.m.: Case discussed with our resident hospitalist, Dr. Medina. She will see the patient for admission. Departure Time of Disposition: 05:38 Disposition: 09 ADMITTED INPATIENT Admitted to Inpatient Unit: to hospitalist Impression: Primary Impression: Calculus of gallbladder with obstruction Qualified Codes: K80.21 - Calculus of gallbladder without cholecystitis with obstruction Condition: Fair Referrals: NO PRIMARY CARE PROVIDER (PCP) Education Educated: Patient Educated regarding: diagnosis, treatment Signature Scribe Signature: No scribe Attestation: No scribe KYLAH YOUSSEF MD May 20, 2025 01:51
[2025-05-20] MEDS: ondansetron/PF 4mg/2ml inj IV ONE (01:53)
[2025-05-20] MEDS: morphine 4 MG/ML inj SYRINge IV PRN ×2 (01:53→13:58)
--- NOTE | 2025-05-20 03:28 | RADIOLOGY REPORT ---
INDICATION: Abdominal Pain R/O Gallbladder TECHNIQUE: Multiple real-time sonographic images were obtained of the right upper quadrant. COMPARISON: None FINDINGS: The liver demonstrates diffusely increased echotexture without focal mass lesions. The live r measures 17.9 cm. Normal hepatopetal portal flow identified. No evidence of pleural effusion or ab dominal ascites. There is no intrahepatic or extrahepatic ductal dilatation. The common duct measures 0.7 cm. Nonmobile gallstone identified within the neck of the gallbladder measures 2.3 x 1.5 x 0.8 cm. The ga llbladder wall measures 0.2 cm and is within normal limits. Negative sonographic rowland's sign. The right kidney measures 12.1 cm. The right kidney is normal in contour, size, and shape. The echoge nicity is normal. There is no hydronephrosis. The pancreas is not well visualized due to overlying bowel gas. IMPRESSION: 1. Cholelithiasis including nonmobile stone within the neck of the gallbladder. 2. Hepatic steatosis.
--- NOTE | 2025-05-20 04:06 | RADIOLOGY REPORT ---
CHEST RADIOGRAPH Indication: pre op Technique: Single frontal view of the chest was obtained COMPARISON: None FINDINGS: Lines and Tubes: None. Spinal cord stimulator leads noted. Lungs: Clear Pleura: No effusion. No pneumothorax. Cardiomediastinal contours: Unremarkable Bones: Unremarkable IMPRESSION: 1. No acute disease.
[2025-05-20 04:20] LABS: LEUKOCYTE ESTERASE ,URINE NEGATIVE (Neg); NITRITES, URINE NEGATIVE (Neg); OCCULT BLOOD,URINE NEGATIVE (Neg)
[2025-05-20 04:21] LABS: UA COLLECTION TYPE CLN CATCH MIDSTREAM
[2025-05-20] MEDS ORDERED: potassium Cl 40MEQ/1/2NS 520ml 520 ML IV PRN (06:00)
[2025-05-20] MEDS ORDERED: HYDROcodone/acetaminophen 5mg/325mg tablet PO PRN (06:00)
[2025-05-20] MEDS ORDERED: magnesium sulf-water 2g/50mL 50 ML IV PRN (06:00)
[2025-05-20] MEDS ORDERED: potassium Cl 20 mEq SR tablet PO PRN ×2 (06:00)
[2025-05-20] MEDS ORDERED: mag hydrox/Alum hydrox/simeth 30ml oral suspension PO PRN (06:00)
[2025-05-20] MEDS ORDERED: magnesium hydroxide 30ml (MOM) UD suspension PO PRN (06:00)
[2025-05-20] MEDS ORDERED: HYDROcodone/acetaminophen 10/325mg tab PO PRN ×2 (06:00→13:50)
[2025-05-20] MEDS ORDERED: ondansetron/PF 4mg/2ml inj IV PRN ×3 (06:00→13:50)
[2025-05-20] MEDS ORDERED: magnesium sulf-water 4G/100mL 100 ML IV PRN (06:00)
[2025-05-20] MEDS ORDERED: magnesium Cl slow-release 64mg tablet PO PRN (06:00)
--- NOTE | 2025-05-20 06:06 | HISTORY AND PHYSICAL-Residence ---
History & Physical Providers to CC Resident Creating Document: PREMA SPENCER RES ~ History of Present Illness Primary Medical Doctor: CON Reason for Admit\Complaint: Abdominal pain History of Present Illness This 54-year-old male presented to the ER with a chief concern of abdominal pain and back pain that started at around 4:00 p.m. yesterday. He stated that he developed sharp pain in the epigastric region and right upper quadrant which later radiated to his back to in between his shoulder blades. He tried to rest at night but could not and so came to the ER. Had nausea but denies any vomiting, constipation or diarrhea. Denied any similar pain in the past. 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 Denies any chest pain, shortness of breaths Coumadin dizziness, dysuria or any other complaints. His abdominal ultrasound showed nonmobile gallstone identified within the neck of the gallbladder and mild CBD dilation-7 mm. Per ER physician, he spoke to the on-call surgeon-Dr. Bennett who did not recommend any ERCP and wanted to do surgery in a.m.. Per patient, he did not eat anything for dinner due to pain. Allergies: Coded Allergies: No Known Allergies (Unverified , 05/20/25) Home Medications Home Medications Active Reported Duloxetine HCl 60 Mg Capsule. 1 Cap PO BID Neurontin (Gabapentin) 300 Mg Capsule 300 Mg PO BID Percocet 10/325 MG* (Oxycodone/Acetaminophen) 10 Mg/325 Mg Tablet 1 Tablet PO TID Pamelor (Nortriptyline Hcl) 25 Mg Capsule 50 Mg PO DAILY Past Medical History Past Medical History Abdominal trauma in the past, finger cellulitis and abscess - MSSA Past Surgical History Surgical History Comment Bilateral knee meniscal repair, bilateral shoulder labrum repair, back nerve stimulator Past Social History Social History Comment States that he is exposed to smoke for the 1st 18 years of life as his parents smoked. Denies smoking tobacco, drinking alcohol or abusing any other recreational drugs. Alcohol Use: Rarely Drug Use: None Lives In: Home ROS ROS Constitutional: No fever, chills, dizziness, weakness, weight gain or loss Eyes: No pain, erythema, discharge, blurring of vision ENT: No sore throat, epistaxis, tinnitus Cardiovascular: No chest pain, chest pressure, chest discomfort, palpitations, syncope, lower extremity edema, paroxysmal nocturnal dyspnea Respiratory: No shortness of breath, cough, hemoptysis Gastrointestinal: Abdominal pain and nausea present. Normal appetite. No vomiting, diarrhea, constipation, hematemesis, bloating, melena or fresh blood Genitourinary: No frequency, urgency, nocturia, hematuria or dysuria Musculoskeletal: No arthralgias or myalgias Integumentary: No change in skin, hair, nails. No swelling, bruising, abrasions Neurologic: No headache, neck pain, numbness or tingling of the extremities, weakness Psychiatric: No delusions, depression, loss of interest in normal activity or change in sleep pattern, hallucinations, suicidal ideations Endocrine: No fatigue, weakness, polydipsia, polyuria, change in appetite, heat or cold intolerance, sweating, dry skin Hematological: No bleeding, petechiae, bruising Allergies: No asthma or urticaria Exam Vitals: Vital Signs Date Time Temp Pulse Resp B/P (MAP) Pulse Ox O2 Delivery O2 Flow Rate FiO2 05/20/25 05:40 96.8 80 16 98 05/20/25 05:06 136/89 (105) 0 General: Alert and oriented x4 HEENT: Normocephalic and atraumatic. Pupils equal round reactive to light and accommodation. Extraocular movements intact. Oral and nasal mucosa moist Neck: Trachea is in midline. No masses or JVD Chest: Bilateral normal breath sounds. No crackles, rhonchi or wheezes Cardiovascular: Regular rate and rhythm. S1-S2 normal. No rubs or murmurs Abdomen: Soft and nondistended. Tenderness in the epigastric region, right upper quadrant. No guarding, rigidity or rebound tenderness. Normoactive bowel sounds. Negative Cruz's sign Extremities: No cyanosis, clubbing or edema Central Nervous System: No gross sensory or motor deficits. CN II to XII intact Skin: Warm and dry Diagnostic Data Last Recorded Lab Results: 05/20/25 0023 05/20/25 0023 Advance Care Planning Advanced Care planning: N/A Additional Plan Symptomatic cholelithiasis Abdominal ultrasound showed Nonmobile gallstone identified within the neck of the gallbladder measures 2.3 x 1.5 x 0.8 cm. The gallbladder wall measures 0.2 cm and is within normal limits. The common duct measures 0.7 cm -mild dilation. Hepatic steatosis. Normal AST, ALT, total bilirubin and ALP, lipase Per ER physician, Dr. Bennett wants to do surgery in the a.m. NPO now Started Zosyn 3.375 g IV q.8h prophylactically for surgery Started normal saline at 100 cc/hour Started protonix 40mg IV daily Recurrent chest discomfort Likely stable angina Chest pressure on exertion Requires a Lexiscan Ordered troponin. EKG showed sinus rhythm with no significant ST or T-wave changes Recommend informing the surgeon before surgery Ordered CTA chest/abdomen/pelvis to rule out aortic dissection BP around 140/80mmHg ordered 1L NS bolus Possible ELLEN Creat 1.52 Teleintensivist okay with CTA Ordered 1L NS Bolus and started NS@100cc/hr # Pending med reconciliation Diet: NPO DVT prophylaxis: Start after the surgery Prema Spencer MD Internal Medicine Resident, PGY 3 Rounded on and examined patient with Dr Spencer The most likely cause of his symptoms is biliary colic. Does not seem to have features of cholecystis. The fact that the pain has not lessened after 12 hours seems unusual. Will obtain a CT of chest A/P to evaulate his aorta and any other possible causes. Unless the surgery is felt to be emergent would recommend further cardiac workup prior given his risk factors and typical anginal symptoms. Plan reviewed with bedside team. Patient seen through remote audiovisual assessment through HIPAA compliant setup. All labs, flowsheets, and images reviewed Cumulative nonprocedural care time spent in directed patient care = 35 min Date of Service: May 20, 2025 Billing Provider: SUSY MORRIS MD, MANOJNA RES May 20, 2025 06:06 SUSY MORRIS MD May 20, 2025 07:46
[2025-05-20] MEDS: normal saline 1000ml 1,000 ML IV SCH (07:17)
[2025-05-20] MEDS: normal saline 1000ml 1,000 ML IV ONE (07:17)
[2025-05-20] MEDS: piperacillin/tazo 3.375gm/50ml 50 ML IV SCH (07:18)
[2025-05-20] MEDS: K and/or MAG REPLACEMENT MC SCH (08:00)
--- NOTE | 2025-05-20 08:12 | RADIOLOGY REPORT ---
CLINICAL INFORMATION: Rule out aortic dissection. TECHNIQUE:Axial CTA images of the chest were obtained after the uneventful administration of, abdomen , and pelvis 100 mL of Omnipaque 350 IV contrast. Coronal and sagittal reformatted images and MIP abhishek ges were obtained, reviewed, and stored. One or more of the following dose reduction techniques were used: Automated exposure control. Adjustment of mA and/or kV according to patient size. CTDIvol = 26 .09, 17.45, 0.07, 0.07 mGy DLP = 2077.74 mGy-cm COMPARISON: Same day chest radiograph. FINDINGS: Aorta: No thoracic or abdominal aortic aneurysm or dissection. Minimal calcified plaque of the distal abdominal aorta. Origins of the brachiocephalic, left common carotid, and left subclavian arteries a re patent. Subclavian arteries are widely patent throughout their courses. Origins of the celiac shay ry, SMA, bilateral renal arteries, and ABHISHEK are patent. Common iliac arteries and internal and externa l iliac arteries are widely patent bilaterally. No evidence of arterial occlusion or significant sten osis. No evidence of active extravasation of arterial contrast demonstrated. Pulmonary arteries: No evidence of pulmonary embolism. Cardiac: Heart size is within normal limits. Moderate coronary artery calcification. Mediastinum/nishant: No mass or adenopathy. Lungs: Minimal dependent atelectasis. Lungs are otherwise clear. No focal consolidation, pneumothorax , or pleural effusion. Chest wall: No mass or other abnormality. Abdomen/pelvis: Gallbladder is distended. Subtle stranding adjacent to the gallbladder. No calcified gallstones visualized. The liver, spleen, pancreas, adrenal glands, and kidneys are unremarkable, alt ruma limited evaluation of the parenchymal organs in the arterial phase of contrast. There is no sma ll bowel obstruction. Nonspecific nondilated fluid-filled small bowel loops. Appendix is visualized a nd appears unremarkable. There are scattered colonic diverticula without adjacent inflammatory change s to suggest diverticulitis. Prostate and bladder are unremarkable. There are small fat containing bi lateral inguinal hernias, right slightly greater than left. Bones: No acute fracture or suspicious intraosseous lesions. IMPRESSION: 1. No thoracic or abdominal aortic aneurysm or dissection. 2. No evidence of pulmonary embolism. 3. Otherwise, no evidence of acute disease in the chest. 4. Distended gallbladder with subtle adjacent stranding. No calcified gallstones visualized. Correla te with clinical findings. Ultrasound could be obtained to further characterize if clinically indicat ed. 5. Nonspecific nondilated fluid-filled small bowel loops. Findings may be seen with ileus or enteriti s in the appropriate clinical setting. No small bowel obstruction. 6. Scattered colonic diverticula without adjacent inflammatory changes to suggest diverticulitis. 7. Small bilateral fat containing inguinal hernias.
[2025-05-20] MEDS: nortriptyline 25mg capsule PO SCH (08:51)
--- NOTE | 2025-05-20 10:03 | ELECTROCARDIOGRAPH REPORT ---
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 Jadon Collins Measurements Intervals [place] Rate: 79 P: 0 KS: 160 QRS: 31 QRSD: 102 T: 7 QT: 376 QTc: 432 Interpretive Statements Atrial-paced complexes Electronically Signed On 05-25-2025 20:05:[address] Jadon Collins Please click the below link to view image of tracing.
[2025-05-20] MEDS ORDERED: aminophylline 500mg/20ml vial IV PRN (11:20)
[2025-05-20] MEDS ORDERED: metoprolol tartrate 1mg/ml inj IV PRN (11:20)
[2025-05-20] MEDS ORDERED: regadenoson 0.4mg/5ml syringe IV PRN (11:20)
--- NOTE | 2025-05-20 12:00 | PROGRESS NOTE ---
Progress Note ID Providers to CC ~ Progress Note Progress Note: pt seen and examined-findings consistent with cholelithiasis-possible cholecystitis-pt needs robo dayanara-possible open-discussed procedure including risks/benefits/alternatives CLARA BERRY MD May 20, 2025 12:00
[2025-05-20] MEDS ORDERED: BUPIVAcaine 2.5mg/ml inj 50ml vial (contains preservative) ONE (12:11)
[2025-05-20] MEDS ORDERED: midazolam 1 mg/ML 2ml injection ONE (12:35)
[2025-05-20] MEDS ORDERED: fentaNYL /PF 50mcg/ml 5ml ampule ONE (12:39)
[2025-05-20] MEDS ORDERED: propofol inj 20 ML IV ONE ×2 (12:50→13:47)
[2025-05-20] MEDS ORDERED: rocuronium 10mg/ml inj IV ONE (12:50)
[2025-05-20] MEDS ORDERED: LIDOcaine 2% (20mg/ml) 5ml vial ONE (12:50)
[2025-05-20] MEDS ORDERED: dexamethasone sod phosphate 4mg/ml inj. ONE (12:50)
[2025-05-20] MEDS: ringers solution, lacted 1,000 ML IV SCH (12:55)
[2025-05-20] MEDS ORDERED: labetalol 20mg/4ml (5mg/ml) syringe IV PRN (12:55)
[2025-05-20] MEDS ORDERED: hydrALAZINE 20mg/ml inj. IV PRN (12:55)
[2025-05-20] MEDS ORDERED: HYDROmorphone/PF 0.2 MG/ML SYRINGE IV PRN (12:55)
[2025-05-20] MEDS: BUPIVAcaine/PF 2.5 mg/ml (0.25%) 30ml vial IJ ONE (13:12)
[2025-05-20] MEDS ORDERED: glycopyrrolate 0.2mg/ml inj ONE (13:43)
--- NOTE | 2025-05-20 13:48 | OPERATIVE REPORT ---
Operative Report Providers to CC CC: CLARA BERRY MD ~ Date of Procedure: May 20, 2025 Pre-Operative Diagnosis: cholelithiasis/cholecystitis Post-Operative Diagnosis SAME as PRE-Op Procedure Performed aknchan nichole Surgeon: melissa Arteaga none Anesthesiologist: Sidney Santos Type of Anesthesia: General Findings: distended gb/cholecystitis Estimated Blood Loss: min Specimen Removed: gb CLARA BERRY MD May 20, 2025 13:48
[2025-05-20] MEDS ORDERED: PCA WASTE DOCUMENTATION 1 MG ML MC SCH (13:50)
[2025-05-20] MEDS: acetaminophen 1,000mg/100ml IV 100 ML IV PRN (13:58)
[2025-05-20] MEDS: HYDROmorphone/PF 0.2 MG/ML SYRINGE IV PRN (14:02)
[2025-05-20] MEDS: ketorolac trometh 30MG/ML vial 30 MG/ML VIAL IV PRN (14:04)
[2025-05-20] MEDS: HYDROmorphone inj. 0.5 MG/0.5 ML DISP.SYRIN IV PRN (16:35)
[2025-05-20] MEDS: duloxetine 30mg CAPSULE.DR PO SCH (20:22)
[2025-05-21 02:00] VITALS: BP 118/76; PULSE 104; RESP 18; TEMP 99.2; O2SAT 94
[2025-05-21 06:00] VITALS: BP 134/86; PULSE 98; RESP 18; TEMP 97.8; O2SAT 97
[2025-05-21 06:02] LABS: MEAN PLATELET VOLUME 6.9 FL (7.4-10.4); RED CELL DISTRIBUTION WIDTH 12.8 % (11.5-14.5)
[2025-05-21 06:08] LABS: APTT 27 SECONDS (22-32); INR 1.1 INR
[2025-05-21 06:24] LABS: HBSAG SCREEN Negative (Negative); HEP B CORE AB, IGM Negative (Negative); HEP B CORE AB, TOT Negative (Negative)
[2025-05-21 06:29] LABS: CHOL/HDL RATIO 3.8 (0.00-4.99); CREATININE 1.13 MG/DL (0.60-1.10); LDL CHOLESTEROL 100 MG/DL (50-100); PHOSPHORUS 3.7 MG/DL (2.3-4.5); TOTAL CARBON DIOXIDE 26.1 MMOL/L (24-32); eCRCL 84 ML/MIN; eGFR 68 ML/MIN
[2025-05-21 08:00] VITALS: RESP 20; O2SAT 97
[2025-05-21 10:00] VITALS: BP 127/74; PULSE 97; RESP 18; TEMP 98.1; O2SAT 98
[2025-05-21] MEDS ORDERED: LEVO750T68 PO (12:46)
[2025-05-21] MEDS ORDERED: METR-159 PO (12:46)
[2025-05-21] MEDS ORDERED: LACT1CAP26 PO (12:49)
--- NOTE | 2025-05-21 13:04 | PROGRESS NOTE ---
Progress Note ID Providers to CC ~ Progress Note Progress Note: doing well/ok to dc CLARA BERRY MD May 21, 2025 13:04
--- NOTE | 2025-05-21 17:51 | DISCHARGE SUMMARY-Residence ---
Discharge Summary Providers to CC Resident Creating Document: KATHY GLEASON RES CC: PAULIE ANGULO MD ~ Discharge Summary Assessment 54-year-old male with history of chronic pain, neuropathic pain, is admitted for evaluation of right upper quadrant pain and is diagnosed with acute calculous cholecystitis Admission Diagnosis: cholelithiasis/cholecystitis Hospital Course DATE OF ADMISSION: 05/20/2025 DATE OF DISCHARGE: 05/21/2025 Discharge Diagnosis\Comment: Acute calculous cholecystitis S/p laparoscopic cholecystectomy on 05/20 Chronic neuropathic pain Operations\Procedures: Laparoscopic cholecystectomy by Dr. Bennett on 05/20 Consultants: Dr. Bennett Complications: none Condition on DC: Stable New Medications: Lactobacillus Rhamnosus (Culturelle) 10 Billion Cell Capsule 1 CAP PO DAILY for 30 Days, #30 CAP 0 Refills Levofloxacin (Levofloxacin) 750 Mg Tablet 1 TAB PO DAILY for 5 Days, #5 TAB Metronidazole* (Flagyl*) 500 Mg Tablet 1 TAB PO Q12H for 5 Days, #10 TAB Continued Medications: Duloxetine HCl (Duloxetine HCl) 60 Mg Capsule.dr 1 CAP PO BID Gabapentin (Neurontin) 300 Mg Capsule 300 MG PO BID, CAP Nortriptyline Hcl (Pamelor) 25 Mg Capsule 50 MG PO DAILY, CAPSULE Oxycodone Hcl/Acetaminophen 10/325 MG* (Percocet 10/325 MG*) 10 Mg/325 Mg Tablet 1 TABLET PO TID, #90 TABLET Discharge Summary: 54-year-old male with history of chronic pain, neuropathic pain, is admitted for evaluation of right upper quadrant pain and is diagnosed with acute calculous cholecystitis Discharge summary -and is admitted for right upper quadrant pain and CT abdomen showed cholelithiasis. However patient was also having epigastric pain, with normal lipase levels. We had done CT angiogram which ruled out aortic dissection. Patient was also complaining of intermittent chest pain for which he had seen Dr. Garcia and we advised the patient to get evaluation on outpatient basis with [facility]. His troponins were negative during the hospitalization and EKG was normal. He had undergone surgery for cholelithiasis on 05/20. Postop recovery was normal he had no complications and on postop day one he recovered bowel function and pain was adequately controlled. He was hemodynamically stable at the time of discharge and his physical condition is as follows General: Adult male, AAO x4, not in apparent distress Head: Normocephalic with an atraumatic Eyes: Pupils- 3mm, reacting to light, conjunctiva- anicteric Nose and throat: No polyps, septum- normal, no mucosal ulcers Neck: Supple, no lymphadenopathy, no carotid bruit Respiratory: No use of accessory muscles of respiration, Bilateral normal vesiscular breath sounds heard. No wheeze, rhochi or creps Cardiac: S1-S2 heard, rythm regular, no gallop/murmur Abdomen: non distended, no tenderness, no organomegaly, bowel sounds- heard, surgical site incisions clear Extremities: no clubbing, no pedal edema, no deformities, peripheral pulses- 2+ Skin: warm and dry, no rash, no purpura Neuro: No focal deficit, gross cranial nerve exam- normal Ultrasound abdomen on 05/20 1. Cholelithiasis including nonmobile stone within the neck of the gallbladder. 2. Hepatic steatosis. CT chest/abdomen IMPRESSION: 1. No thoracic or abdominal aortic aneurysm or dissection. 2. No evidence of pulmonary embolism. 3. Otherwise, no evidence of acute disease in the chest. 4. Distended gallbladder with subtle adjacent stranding. No calcified gallstones visualized. Correlate with clinical findings. Ultrasound could be obtained to further characterize if clinically indicated. 5. Nonspecific nondilated fluid-filled small bowel loops. Findings may be seen with ileus or enteritis in the appropriate clinical setting. No small bowel obstruction. 6. Scattered colonic diverticula without adjacent inflammatory changes to suggest diverticulitis. 7. Small bilateral fat containing inguinal hernias. Laboratory Tests Test 05/20/25 00:23 05/20/25 04:13 05/20/25 05:46 05/20/25 05:48 White Blood Count 7.6 X10'3 Red Blood Count 4.34 X10'6 Hemoglobin 13.5 g/dl Hematocrit 38.0 % Mean Corpuscular Volume 87.6 FL Mean Corpuscular Hemoglobin 31.2 PG Mean Corpuscular Hemoglobin Concent 35.6 g/dL Red Cell Distribution Width 12.7 % Platelet Count 285 X10'3 Mean Platelet Volume 6.7 FL Neutrophils (%) (Auto) 60.1 % Lymphocytes (%) (Auto) 27.8 % Monocytes (%) (Auto) 7.3 % Eosinophils (%) (Auto) 4.0 % Basophils (%) (Auto) 0.8 % Neutrophils # (Auto) 4.6 X10'3 Lymphocytes # (Auto) 2.1 X10'3 Monocytes # (Auto) 0.6 X10'3 Eosinophils # (Auto) 0.3 X10'3 Basophils # (Auto) 0.1 X10'3 CBC Comment Sodium Level 138 MMOL/L Potassium Level 4.5 MMOL/L 4.3 MMOL/L Chloride Level 103 MMOL/L Carbon Dioxide Level 27.8 MMOL/L Anion Gap 7 Blood Urea Nitrogen 17 MG/DL Creatinine 1.52 MG/DL Estimated GFR/1.73 m2 48 ML/MIN BUN/Creatinine Ratio 11.2 Glucose Level 133 MG/DL Calcium Level 9.1 MG/DL Total Bilirubin 0.4 MG/DL Aspartate Amino Transf (AST/SGOT) 16 U/L Alanine Aminotransferase (ALT/SGPT) 31 U/L Alkaline Phosphatase 73 IU/L Total Protein 7.5 G/DL Albumin 4.2 G/DL Globulin 3.3 G/DL Albumin/Globulin Ratio 1.3 Lipase 21 U/L Chemistry Comments Urine Specimen Description Cln catch midstream Urine Color Yellow Urine Clarity Clear Urine pH 5.5 Urine Specific [place] 1.015 Urine Protein Negative mg/dl Urine Glucose (UA) Negative mg/dl Urine Ketones Negative mg/dl Urine Occult Blood Negative Urine Nitrite Negative Urine Bilirubin Negative Urine Urobilinogen 0.2 E.U/dL Urine Leukocyte Esterase Negative Urine Culture Indicated Not ind Volume Urine Centrifuged 10 ml Urine Comment Hemoglobin A1c 5.3 % Troponin I High Sensitivity 7 ng/L Glucometer 103 mg/dl Test 05/20/25 09:56 05/20/25 11:14 05/21/25 05:19 Hepatitis B Surface Antigen Negative Hepatitis B Core Total Antibody Negative Hepatitis B Core IgM Antibody Negative Glucometer 91 mg/dl White Blood Count 8.9 X10'3 Red Blood Count 3.82 X10'6 Hemoglobin 11.9 g/dl Hematocrit 33.8 % Mean Corpuscular Volume 88.6 FL Mean Corpuscular Hemoglobin 31.1 PG Mean Corpuscular Hemoglobin Concent 35.1 g/dL Red Cell Distribution Width 12.8 % Platelet Count 290 X10'3 Mean Platelet Volume 6.9 FL Neutrophils (%) (Auto) 85.8 % Lymphocytes (%) (Auto) 9.2 % Monocytes (%) (Auto) 4.9 % Eosinophils (%) (Auto) 0 % Basophils (%) (Auto) 0.1 % Neutrophils # (Auto) 7.7 X10'3 Lymphocytes # (Auto) 0.8 X10'3 Monocytes # (Auto) 0.4 X10'3 Eosinophils # (Auto) 0.0 X10'3 Basophils # (Auto) 0.0 X10'3 CBC Comment Prothrombin Time 10.9 SECONDS INR International Normalized Ratio 1.1 INR Activated Partial Thromboplast Time 27 SECONDS Coagulation Comments Sodium Level 136 MMOL/L Potassium Level 4.3 MMOL/L Chloride Level 101 MMOL/L Carbon Dioxide Level 26.1 MMOL/L Anion Gap 9 Blood Urea Nitrogen 17 MG/DL Creatinine 1.13 MG/DL Estimated GFR/1.73 m2 68 ML/MIN BUN/Creatinine Ratio 15.0 Glucose Level 132 MG/DL Calcium Level 8.6 MG/DL Phosphorus Level 3.7 MG/DL Magnesium Level 2.1 MG/DL Total Bilirubin 0.7 MG/DL Aspartate Amino Transf (AST/SGOT) 21 U/L Alanine Aminotransferase (ALT/SGPT) 37 U/L Alkaline Phosphatase 67 IU/L Total Protein 6.4 G/DL Albumin 3.4 G/DL Globulin 3.0 G/DL Albumin/Globulin Ratio 1.1 Triglycerides Level 123 MG/DL Cholesterol Level 174 MG/DL LDL Cholesterol 100 MG/DL HDL Cholesterol 46 MG/DL Cholesterol/HDL Ratio 3.8 Chemistry Comments His discharge medications can be found above, and he is sent home with the following recommendations Activity as tolerated No lifting more than 15 pounds for 2 weeks Diet as tolerated Remove Band-Aids 48 hours after surgery If Steri-Strips in place, leave in place for 7-10 days May shower 48 hours after surgery Follow-up with Dr. BENNETT in 2 weeks. Call for appointment. [phone] Take antibiotics as prescribed for five days FOLLOW UP WITH THE [employer]ENSIC DNA ANALYST DR. GARCIA AND INQUIRE REGARDING LEXISCAN Return to the ER in case of any recurrence of symptoms *Problems/Diagnosis: (1) Calculus of gallbladder with obstruction Status: Acute Total Time Spent on D/C: > 30 Minutes Date of Service: May 21, 2025 Billing Provider: PAULIE ANGULO MD Problem Qualifiers (1) Calculus of gallbladder with obstruction: Cholecystitis presence: without cholecystitis Qualified Codes: K80.21 - Calculus of gallbladder without cholecystitis with obstruction KATHY GLEASON, RES May 21, 2025 17:51
--- NOTE | 2025-05-22 05:34 | OPERATIVE REPORT ---
DATE OF SURGERY: 05/20/2025 DICTATING PHYSICIAN: Kendrick Bennett MD PREOPERATIVE DIAGNOSES: Cholelithiasis and cholecystitis. POSTOPERATIVE DIAGNOSES: Cholelithiasis and cholecystitis. PROCEDURE PERFORMED: Robotic cholecystectomy. SURGEON: Kendrick Bennett MD MAIL DISTRIBUTOR: None. ANESTHESIA: General/Dr. Santos. DRAINS: None. INDICATIONS FOR OPERATION: A 54-year-old male presented to the ER with complaints of abdominal pain, found to have cholelithiasis and question of cholecystitis, taken to surgery for robotic cholecystectomy. INTRAOPERATIVE FINDINGS: Distended gallbladder with inflammatory changes. DESCRIPTION OF PROCEDURE: The patient was placed supine on the operating table. After induction of general anesthesia and placement of endotracheal tube, the abdomen was prepped and draped. A subumbilical incision was then made and Amarilys port placed using open technique and pneumoperitoneum was begun by insufflation of CO2. Additional ports were then placed, one in left lower quadrant and two in the right. Robot was then brought to the field. Camera port docked. Camera placed, camera targeted. Additional ports were then docked and instruments placed. Abdomen was then explored. Gallbladder fundus was grasped and retracted cephalad. Cystic duct identified, isolated, ligated, clipped and divided as was the cystic artery. The of the gallbladder fossa. When hemostasis was found to be adequate, robotic instruments were removed. Robot undocked from the field. Abdomen was irrigated with large amount of antibiotic-containing solution. Gallbladder was placed in Endobag using a laparoscope. When hemostasis was found to be adequate, robotic instruments were removed with no evidence of active bleeding. Final port and camera withdrawn as well as removed the gallbladder. Pneumoperitoneum was evacuated. Wounds were closed in layers. Skin was closed with subcuticular stitch. Dressings applied. The patient was transferred to recovery in stable condition after reversing from general anesthesia. Kendrick Bennett MD TID: [id number] RECEIPT: [id number] JOSIAS/BERNADINE/CAMPBELL
--- NOTE | 2025-05-22 05:44 | CONSULTATION ---
DATE OF CONSULTATION: 05/20/2025 DICTATING PHYSICIAN: Kendrick Bennett MD REASON FOR CONSULTATION: Abdominal pain. HISTORY OF PRESENT ILLNESS: The patient is a 54-year-old male seen in the ER with complaints of abdominal discomfort. Workup revealed cholelithiasis and possible cholecystitis. Surgical evaluation now requested. On further questioning, the patient's pain is much improved. No previous episodes. Pain was involved in the right upper quadrant. He had for lunch. PAST MEDICAL HISTORY: Significant for cellulitis, history of abscess. PAST SURGICAL HISTORY: Includes knee and shoulder repairs, back nerve stimulator. HOME MEDICATIONS: Include duloxetine, Neurontin, Percocet, and Pamelor. ALLERGIES: None. SOCIAL HISTORY: Rare alcohol use. No tobacco. No drugs. REVIEW OF SYSTEMS: See H and P. PHYSICAL EXAMINATION: GENERAL: Well-nourished male, in minimal distress. VITAL SIGNS: Unremarkable. HEART: Regular rate and rhythm. LUNGS: Clear to auscultation. ABDOMEN: Diarrhea at the present time. EXTREMITIES: Unremarkable. NEUROLOGIC: Nonfocal. LABORATORY DATA: Included WBC is 7, hematocrit of 38, platelet count 285. Chemistries, BUN and creatinine 70 and 1.5. LFTs are essentially unremarkable. Lipase 21. IMAGING STUDIES: * Ultrasound revealed cholelithiasis with non-mobile gallbladder. * CAT scan reveals evidence of distended gallbladder with adjacent stranding. IMPRESSION: * Cholelithiasis with cholecystitis. * History of cellulitis. RECOMMENDATIONS: Robotic cholecystectomy, possible open. Kendrick Bennett MD TID: [id number] RECEIPT: [id number] JOSIAS/BERNADINE/EVER
--- NOTE | 2025-05-23 11:29 | PATHOLOGY REPORT ---
[facility] [address] [place] [address] SURGICAL PATHOLOGY REPORT CaseNumber: [id number] Surgeon:Kendrick Bennett M.D. CLINICAL INFORMATION CLINICAL INFORMATION: Symptomatic cholelithiasis. DIAGNOSIS DIAGNOSIS: GALLBLADDER; CHOLECYSTECTOMY - CHOLELITHIASIS. - ACUTE AND CHRONIC CHOLECYSTITIS. MICROSCOPIC DESCRIPTION MICROSCOPIC DESCRIPTION: Performed. GROSS DESCRIPTION GROSS DESCRIPTION: Received in a container of formalin labeled with the patient's name, number, and " Gallbladder" is a disrupted gallbladder which measures 8 cm long by 3 cm in diameter. The serosa is s omewhat roughened and purple-hong. The surgical bed is unremarkable. Sectioning reveals a small amount of viscous dark green bile and a 1.5 cm yellow-green stone. The mucosa is red and granular; however, a discrete mass lesion is not identified. The wall of the gallbladder measures up to 0.5 cm thick. R epresentative sections of the neck and wall of the gallbladder are submitted as A1.The time at which the specimen was removed was 1335. The time at which the specimen was placed in formalin was 1337. Electronically signed by: Vincent Briones, 05/23/2025 10:53:00 AM
== END 2025-05-21 13:25 | disposition home or self-care (01) | DRG 419 ==
LOC: ER 00:13 → UNDOADMIN 06:01 → ED HOLD 06:01 → ORTHO 4S 10:19 → UNDODISIN 05-21 13:25
PROVIDERS: ADMIT Internal Medicine Critical Care Medicine; ATTEND Family Medicine
PROC: 8E0W4CZ Robotic Assisted Procedure of Trunk Region, Percutaneous Endoscopic Approach (ICD-10-PCS; 2025-05-20)
PROC: B4201ZZ Computerized Tomography (CT Scan) of Abdominal Aorta using Low Osmolar Contrast (ICD-10-PCS; 2025-05-20)
PROC: B4241ZZ Computerized Tomography (CT Scan) of Superior Mesenteric Artery using Low Osmolar Contrast (ICD-10-PCS; 2025-05-20)
PROC: B4281ZZ Computerized Tomography (CT Scan) of Bilateral Renal Arteries using Low Osmolar Contrast (ICD-10-PCS; 2025-05-20)
PROC: B42C1ZZ Computerized Tomography (CT Scan) of Pelvic Arteries using Low Osmolar Contrast (ICD-10-PCS; 2025-05-20)
PROC: B42H1ZZ Computerized Tomography (CT Scan) of Bilateral Lower Extremity Arteries using Low Osmolar Contrast (ICD-10-PCS; 2025-05-20)
PROC: B4211ZZ Computerized Tomography (CT Scan) of Celiac Artery using Low Osmolar Contrast (ICD-10-PCS; 2025-05-20)
PROC: 0FT44ZZ Resection of Gallbladder, Percutaneous Endoscopic Approach (ICD-10-PCS; principal; 2025-05-20 12:28)
DX: K80.10 Calculus of gallbladder with chronic cholecystitis without obstruction (principal); K76.0 Fatty (change of) liver, not elsewhere classified; D64.9 Anemia, unspecified; Z79.899 Other long term (current) drug therapy
CPT/HCPCS: 36415; 71045; 71275; 74174; 76700; 80053; 80061; 81003; 82948; 83036; 83690; 83735; 84100; 84132; 84484; 85025; 85610; 85730; 86704; 86705; 87081; 87340; 93005; 96374; 99285; A4215; A4618; A6223; A6258; A6449; A7000; G0378; J0131; J1100; J1171; J1885; J2003; J2250; J2270; J2405; J2470; J2543; J2704; J2710; J3010; J3490; J7030; J7120; Q9967